=== PATIENT | male | born 1965 | race Two or more races ===

== ENCOUNTER 2024-07-20 11:52 | Observation (INO) | payer MEDICAID, SELFPAY ==
--- NOTE | 2024-07-17 12:26 | EKG_ITS ---
[facility] Test Date: 2024-07-17 Pat Name: ELISEO JACOBSON Department: Room: - Gender: Male Service Center Technician: LYLE : 1965 Requested By: Sal Palacio Order Number: [id number] Reading MD: Sal Palacio Measurements Intervals [place] Rate: 73 P: 34 OK: 157 QRS: 51 QRSD: 79 T: 19 QT: 339 QTc: 376 Interpretive Statements SINUS RHYTHM MINIMAL VOLTAGE CRITERIA FOR LVH, CONSIDER NORMAL VARIANT No previous ECG available for comparison /[id number]
[2024-07-17 12:36] VITALS: BMI 21.4
--- NOTE | 2024-07-17 12:57 | ESHP_ITS ---
RE: ELISEO JACOBSON : 1965 DATE OF ADMISSION: 07/18/2024 HISTORY OF PRESENT ILLNESS: The patient came to my office on 07/17/2024 for detailed preop history and physical examination. The patient presented to me earlier with history of pain in the right shoulder. The patient stated that he had a fall on 03/09/[address] gas station. The patient was walking out of the store and he tripped. The patient apparently landed on the right shoulder region. Since then, the patient has got pain. Range of motion is severely restricted. The patient graded intensity of pain to be 8/10. Activities of daily living and quality of life is affected. The patient also has polio in the left arm and is unable to raise the arm. Right arm is okay. The patient has polio in both lower limbs and takes some support to walk with. PAST MEDICAL HISTORY: No history of diabetes mellitus, high blood pressure, asthma, seizure, chest pain, or myocardial infarction. 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 DRUG HISTORY: 1. Pain medication on and off. 2. The patient takes pantoprazole and iron tablet. ALLERGIES: NIL KNOWN. FAMILY HISTORY AND SOCIAL HISTORY: Noncontributory. PHYSICAL EXAMINATION: GENERAL: Normal built person. VITAL SIGNS: Pulse 88 per minute, blood pressure 120/76. NECK: Soft, supple. No masses felt. Trachea is centrally placed. CARDIOVASCULAR SYSTEM: First and second heart sounds are normal. No murmur heard. ABDOMEN: Soft, scaphoid. No mass felt. Bowel sounds present. LUNGS: Bilateral vascular breath sounds. CHEST: Clear. EXTREMITIES: Right shoulder examination revealed no deformity. There is 2+ tenderness at AC joint. Active range of motion is 0 to 70 degrees of abduction and 0 to 70 degrees of forward flexion. Drop arm test is positive. Impingement test is positive. Michael test is positive. DIAGNOSTIC DATA: MRI scan was obtained earlier, which revealed massive rotator cuff tear involving supraspinatus and infraspinatus. Beside that, the patient has moderate AC joint arthritis and glenohumeral joint effusion. ASSESSMENT AND PLAN: Diagnosis and prognosis were explained to him in detail. The patient's family member was present as well. Surgical option was discussed. I explained that I do open surgery and in case the patient wants arthroscopic surgery, I can refer him out. However, the patient wanted to proceed with open surgery. With the help of shoulder model and strapper operator, it was explained to him in detail. Risks with anesthesia was explained and that includes, but not limited to reaction to anesthetic agents, cardiac arrest and rarely it might be fatal. Risks with operation includes infection and if that happens, the patient may need further surgical procedure. Other risks include delayed healing, wound dehiscence, etc. No guarantee is given regarding outcome of the procedure and/or relief of symptoms. Detailed discussion took place. Accordingly, surgery is booked for 07/18/2024. All questions were answered. DT: 11:57:02 TT: 12:55:00 Ref: [id number] - TID: [id number]
[2024-07-17 13:37] LABS: Basophils % (Auto) 0 % (0-2.5); Eosinophils # (Auto) 0.1 Thou/mm3 (0.0-0.5); Eosinophils % (Auto) 1 % (0-10); Hematocrit 47.8 % (41.0-53.0); Hemoglobin 16.4 g/dL (13.5-16.0); Immature Granulocytes % (Auto) 0 % (0-0); Immature Granulocytes Auto 0.01 Thou/mm3 (0.00-0.00); Lymphocytes # (Auto) 1.4 Thou/mm3 (1.0-4.8); Lymphocytes % (Auto) 27 % (10-50); Mean Corpuscular HGB Conc 34.3 g/dl (31.0-37.0); Mean Corpuscular Hemoglobin 30.7 pg (25.0-35.0); Mean Corpuscular Volume 89 fL (80-100); Monocytes # (Auto) 0.4 Thou/mm3 (0.0-0.8); Monocytes % (Auto) 8 % (0-12); Neutrophils # (Auto) 3.4 Thou/mm3 (1.8-7.7); Neutrophils % (Auto) 64 % (37-80); Nucleated Red Blood Cell % 0 /100 WBC (0); Platelet Count 295 Thou/mm3 (140-440); RDW Standard Deviation 41.7 fL (35.1-43.9); Red Blood Count 5.35 Miln/mm3 (4.50-5.90); White Blood Count 5.4 Thou/mm3 (3.8-10.6)
[2024-07-17 13:42] LABS: Partial Thromboplastin Time 28.2 Seconds (22.0-36.0); Prothrombin Time 11.3 Seconds (9.0-12.2)
[2024-07-17 13:50] LABS: Alanine Aminotransferase 44 U/L (10-49); Albumin/Globulin Ratio 1.7 (1.2-2.2); Alkaline Phosphatase 115 U/L (46-116); Anion Gap 9 (7-16); Aspartate Amino Transferase 32 U/L (0-34); BUN/Creatinine Ratio 22 Ratio (12-20); Bilirubin,Total 1.6 mg/dL (0.3-1.2); Blood Urea Nitrogen 22 mg/dL (9-23); Calcium 10.4 mg/dL (8.3-10.6); Calcium (Corrected) 10.4 mg/dL (8.5-10.1); Carbon Dioxide 26.2 mMol/L (20.0-31.0); Chloride 105 mMol/L (98-107); Estimated Creatinine Clearance 61.6 mL/min (>60); Glucose 94 mg/dL (74-106); Osmolality,Calculated 282 (275-295); Potassium 4.1 mMol/L (3.4-5.1); Sodium 140 mMol/L (136-145); eGFR > 60 See Note
[2024-07-18] VITALS (16 sets, daily range): BP systolic 121–145; BP diastolic 78–92; PULSE 84–106; RESP 12–99; TEMP 36.3–36.9; O2SAT 94–96; BMI 21.4
--- NOTE | 2024-07-18 16:16 | SUR.PHASEI ---
pt received from OR in recovery bay 1. pt asleep but responds to voice, breathing unlabored on room air. v/s stable. pt dressing to right shoulder cdi. report received from Andreea FONTAINE and Dr. Julio.
--- NOTE | 2024-07-18 16:16 | ESOP_ITS ---
Date of Procedure 07/18/24 Pre Op Diagnosis 1. Right rotator cuff tear 2 right shoulder impingement syndrome Post Op Diagnosis Same Procedure 1. Excision lateral end of the clavicle 2 excision coracoacromial ligament 3 acromioplasty 4 repair of rotator cuff 5. Manipulation under anesthesia Findings Patient has significant DJD of the AC joint. Osteophytes were present and were protruding inferiorly impinging on the rotator cuff. The rotator cuff was also torn. It was a minor tear but most of the fibers were attached to the greater tuberosity. Patient also has adhesive capsulitis. The rest of the findings are dictated in operating report Procedure Description The patient was given general endotracheal anesthesia. Right shoulder block was also given. Once satisfactory anesthesia was achieved patient was put in about 45?? sitting position with sandbag underneath the right shoulder blade. The part was thoroughly prepped and draped. A skin incision was made at the AC joint extending proximally towards the neck for a half inches and distally towards the arm for about couple of inches. Deeper dissection was carried out. Bleeding vessels were electrocoagulated as and when encountered. The soft tissue was reflected. Following that AC joint was exposed and AC joint was exposed. The AC joint showed significant osteoarthritic changes with osteophyte formation. The deltoid muscle was reflected from the anterior and lateral aspect of the acromial process. The acromial process showed rather big osteophytes from the anterior aspect. There was small osteophyte on the lateral aspect as well. Following that a periosteal elevator was placed underneath the lateral end of the clavicle and lateral 3-4 mm was excised. The coracoacromial ligament was removed. The anterior 2 mm and lateral 2 mm of acromion process along with osteophytes were removed with the help of saw. With the help of curved osteotome the undersurface of the Acromial processes was chiseled out. That made more room between the superior surface of the head of the humerus and undersurface of the acromial process. Following that the rotator cuff was inspected. It revealed an oval tear, however most of the fibers were attached to the greater tuberosity. Wound was irrigated with antibiotic solution every 4-5 minutes. The right s houlder was manipulated at this time. Full range of abduction and forward flexion was achieved. The rotator cuff tear was repaired with 2-0 Vicryl. 2 drill holes were made on the acromial process and deltoid muscle was stitched back to it. Some reinforcement sutures were placed. The subcutaneous tissue was then closed with the help of 2-0 Vicryl and 3-0 Vicryl in layers. The skin was closed with lowell. After cleaning the wound with hydrogel proximal solution and sterile dressing was applied. Patient was taken to the recovery room in good condition. Estimated blood loss 20 mL. Prognosis in this case is good. Anesthesia GETA and other Pathology / specimen None Estimated Blood Loss 20 Surgeon Sal Zapata MD Surgical Staff Operation Date: 07/18/24 15:45 Case Staff Anesthesiologist: Anthony Julio RNhealth care / medical job titles: Katie Tanner
--- NOTE | 2024-07-18 16:40 | SUR.PHASEI ---
pt able to tolerate oral fluids without difficulty swallowing or nausea/vomiting.
[2024-07-18] MEDS: METOPROLOL TARTRATE INJ 1 MG/ML AMP 5 ML IVP (17:24)
--- NOTE | 2024-07-18 18:26 | ESPR_ITS ---
Documentation for date of: 07/18/24 ANESTHESIA NOTE: Patient had general LMA anesthesia with R interscalene nerve block for R rotator surgery earlier today. 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 He did well intra-op and has been in PACU post op doing well, alert, no post op pain, VSS, visited by family. His HR and BP was slightly elevated so he was given IV Metoprolol. Anticipate R UE nerve block to last up to 24 hrs, currently in protective sling. Anthony Julio MD Anesthesia Progress Note Progress Note Most recent Vital Signs: Last Vital Signs Temp 97.7 F 07/18/24 18:15 Pulse 98 07/18/24 18:15 Resp 19 07/18/24 18:15 BP 136/80 H 07/18/24 18:15 Pulse Ox 95 07/18/24 18:15
--- NOTE | 2024-07-18 19:25 | SUR.PHASEII ---
pt awake and alert, breathing unlabored on room air. v/s stable. pt dressing to right shoulder cdi. report called to Vani FONTAINE. pt will be transferred to room at this time.
[2024-07-19 04:00] VITALS: BP 113/74; PULSE 90; RESP 17; TEMP 36.2; O2SAT 95
[2024-07-19] MEDS: HYDROcodone/APAP 5/325 TABLET 1 TAB PO ×3 (06:41→19:32)
[2024-07-19 08:00] VITALS: BP 139/73; PULSE 58; RESP 17; TEMP 36.1; O2SAT 99
--- NOTE | 2024-07-19 10:00 | PC.SS ---
SNUFF GRINDER spoke to dr and nurse regarding pt not wanting to go home due to wanting to go to a SNF, SNUFF GRINDER, and Nurse discussed possible d.c plans for pt, SNUFF GRINDER to follow up with Pt.
--- NOTE | 2024-07-19 11:14 | PC.SS ---
BLENDING TANK HELPER spoke to Nurse Cardenas and Dr. Zapata about pt's and daughter Britni's concern about pt going back home and them not being ok with the d/c plan of pt going home without assistance due to client feeling like he won't be able to complete his own ADL's because he has polio on left arm, and he lives with 83 year old grandma who is limited on what she can assist him with, Dr. Rojas stated that he had a conversation with pt and family before pt had surgery and they stated that they would be able to assist pt with post op. Dr. James stated that he is okay with pt getting a pt eval and Nurse davi will put a PT eval for pt to eval pt, but pt will be staying over the weekend due to pt having managed medical. BLENDING TANK HELPER explained to pt the options of pt staying at the hospital and waiting for pt to eval, or for pt to go home and get assistance from family, pt stated that he wanted to wait and see PT for eval. BLENDING TANK HELPER to follow up through out the weekend and see what PT recommends for pt to discuss d/c plan.
[2024-07-19 11:40] VITALS: PULSE 61; RESP 18; RESP 99
[2024-07-19 12:00] VITALS: BP 129/78; PULSE 68; RESP 17; TEMP 36.2; O2SAT 93
--- NOTE | 2024-07-19 13:45 | PC.SS ---
PT followed up with LEAD SHIPPER and stated that she will be recommending SNF placement, LEAD SHIPPER to start referral process.
--- NOTE | 2024-07-19 14:32 | PC.PT ---
Patient has regular sling. Pls put folded towel in between patient's forearm and body especially when patient is in supine, to position patient's shoulder in abduction.
[2024-07-19 16:00] VITALS: BP 133/89; PULSE 82; RESP 16; TEMP 36.2; O2SAT 95
[2024-07-19 20:00] VITALS: BP 133/79; PULSE 70; RESP 18; TEMP 36.4; O2SAT 94
[2024-07-20] VITALS (8 sets, daily range): BP systolic 112–139; BP diastolic 77–94; PULSE 66–81; RESP 17–96; TEMP 36.2–36.6; O2SAT 92–97
[2024-07-20] MEDS: HYDROcodone/APAP 5/325 TABLET 1 TAB PO ×4 (02:00→23:35)
--- NOTE | 2024-07-20 09:11 | PC.SS ---
REIMBURSEMENT SPEC met with pt and asked pt if he has a SNF preference and pt stated that he prefers a SNF in [place],REIMBURSEMENT SPEC completed PASSAR.
--- NOTE | 2024-07-20 09:43 | PC.SS ---
BUSINESS RESILIENCY MANAGER submitted SNF referrals via [employer]
--- NOTE | 2024-07-20 10:40 | PC.SS ---
Pt stated that his preference of SNF placement is somewhere in [place], PANEL FITTER submitted referrals.
--- NOTE | 2024-07-20 15:18 | PC.NURSE ---
well services operator met with patient at bedside about discharge plan. Dr. Zapata met with patient at bedside earlier in the day, patient was informed that additional stay in the hospital may result in charges not covered by patient's insurance. Patient decided to stay additional night and still requested placement in SNF. Patient was seen by physical therapy. Patient changed mind at 1430, attempts made at 1430, 1500, and [address] Zapata to inform of patient's change of mind. patient is becoming agitated and wants to leave.
--- NOTE | 2024-07-20 15:29 | PC.SS ---
CLOTH FEEDER met with pt to follow up on acceptance of SNF's facilities in [place], CLOTH FEEDER followed up with pt and informed pt that [facility] in [place] was the only facility that accepted pt, and pt stated that he wanted to go home and did not want to go to a SNF. CLOTH FEEDER had a conversation with pt regarding him explaining to CLOTH FEEDER the day before that he wanted to go to a snf and agreed to stay until snf referrals were made. CLOTH FEEDER explained to pt on what physical therapist recommended for pt upon discharge. CLOTH FEEDER talked to daughter Nayana and explained to her what pt wanted to do, CLOTH FEEDER explained to daughter why pt is being referred to SNF, and daughter stated that she also wants pt to go to a snf, pt decided to stay and wait for insurance auth for pt to d/c to snf. CLOTH FEEDER followed up with nurse.
--- NOTE | 2024-07-20 19:28 | ESPR_ITS ---
RE: ELISEO JACOBSON : 1965 DATE OF SERVICE: 07/20/2024 The patient was seen by me again on 07/18/2024. The patient is status post right rotator cuff repair with Debbie procedure. The patient could not be sent home on 07/18/2024 because the patient has had a right shoulder block or a scalene block. The patient felt weakness in the right arm and has difficulty in holding the walker. The patient has polio on the left arm and the range of motion is almost absent. The patient's left arm is extremely weak. Besides that, the patient has polio in both lower limbs and uses walker to walk with. Under the circumstance, the patient was admitted for overnight on 07/18/2024 until the effect of the block is gone. However, on 07/19/2024, the patient still had some weakness. The patient stated that he does not have family support. The patient did not bring these issues before the operative procedure and stated that he has a family who can take care of him. However, under the circumstance, we decided to keep the patient for one more night. The physical therapy will come and mobilize him either on 07/19/2024 or 07/20/2024. Basically, it is a social admission. DT: 10:55:35 TT: 19:26:00 Ref: [id number] - TID: [id number]
[2024-07-21] VITALS: BP 129/80; PULSE 75; RESP 18; TEMP 36.2; O2SAT 93
[2024-07-21 04:00] VITALS: BP 135/86; PULSE 78; RESP 18; TEMP 36.2; O2SAT 94
[2024-07-21 07:29] VITALS: PULSE 77; RESP 21; RESP 95
[2024-07-21 08:00] VITALS: BP 127/97; PULSE 89; RESP 18; TEMP 36.6; O2SAT 94
--- NOTE | 2024-07-21 08:41 | PC.SS ---
Seeking Placement: [facility] [address] [place] [address] Longterm Facility 07/20/2024 09:41 (1) [facility] [address] [place], [place] [phone] Longterm Facility Yes 07/20/2024 09:59 07/20/2024 09:41 We can accept this patient. Thank you for your referral (2) [facility] [address], [place] [phone] Longterm Facility Yes 07/20/2024 12:09 07/20/2024 09:41 We can accept this patient. Thank you for your referral (2) [facility] [address], [place] [phone] Longterm Facility Considering 07/20/2024 09:49 07/20/2024 09:41 Pending Nurse Evaluation (1) [facility] [address], [place] [phone] Longterm Facility Yes 07/20/2024 13:34 07/20/2024 09:41 We can accept this patient. Thank you for your referral (2) [facility] [address] [place], [place] [phone] Longterm Facility Yes 07/20/2024 12:38 07/20/2024 09:41 We can accept this patient. Thank you for your referral (1) [facility] [address] [place] [address] Longterm Facility Yes 07/20/2024 12:16 07/20/2024 09:41 We can accept this patient. Thank you for your referral (1) [facility] [address], [place] [phone] Longterm Facility 07/20/2024 09:41 (1) [facility] [address] [place] [address] Longterm Facility Yes 07/20/2024 09:43 07/20/2024 09:41 We can accept this patient. Thank you for your referral (1) [facility] [address] [phone] Longterm Facility [facility] [address] [facility], [place] [phone] Longterm Facility No 07/20/2024 09:42 07/20/2024 09:41 Not Contracted With Insurance Carrier (1) [facility] [address] [place] [phone] Longterm Facility Yes
--- NOTE | 2024-07-21 09:32 | PC.SS ---
SS followed up with pt regarding his d/c plan to SNF. Pt refused to go to SNF and his request is return home upon dc. Bedside nurse, Theresa is aware and will notify Dr. Rojas. SS has called patient's dtr, Alina who is aware pt is refusing SNF and will return home. SS attempted to call Dr. Kraus but was unsuccessful. SS left voicemail with contact information. Pt states his dtrNayana is aware he has changed his mind and is now returning home. has also notified transfer nurse, Marino pt will return home with and he does not have preference. Pt states he followed up with PCP, Rhea Soliz in June.
--- NOTE | 2024-07-21 09:35 | PC.CM ---
1813 Pt is discharged. I informed Dr. Rojas that informed me that pt needs HH services and if he can place HH orders in. He stated it will be done tomorrow. 931 SS informed me that pt needs HH services, entered the pt on e.
[2024-07-21] MEDS: HYDROcodone/APAP 5/325 TABLET 1 TAB PO (09:52)
--- NOTE | 2024-07-22 18:55 | PC.CM ---
I checked for home health orders from Dr. Rojas. Orders have not been placed. Marino spoke to Dr. Rojas yesterday and he told her he would put in home health orders.
--- NOTE | 2024-07-23 11:46 | PC.CM ---
called and reminded Dr. Rojas to place HH orders. He stated he will put the orders after 1pm.
--- NOTE | 2024-07-28 14:59 | PC.CM ---
I called Dr. Rojas office and I spoke to Maddie. I let her know that it has been so long since patient was discharge, that they would need to order home health if still needed. Maddie stated patient was in on the and they changed the dressing. She was trying to get a hold of Dr. Rojas to ask him about it, but he was busy. I let her know to call us if they need anything from us and I provided her with our number.
--- NOTE | 2024-07-31 10:26 | ESPR_ITS ---
RE: ELISEO JACOBSON : 1965 DATE OF SERVICE: 07/20/2024 HISTORY OF PRESENT ILLNESS: The patient is status post right rotator cuff repair with Debbie procedure. I saw him today. The patient does not have any weakness in the fist and urban sociologist on the right side. I explained to the patient that he can certainly use walker and can have a good urban sociologist on the walker. There is no restriction in moving the right arm at all. I am awaiting for the physical therapy to mobilize the patient and once the patient is mobilized, the patient could be discharged home. The patient is not in too much pain. It is to be noted that the patient has a casandra on the left upper arm as well as in both lower limbs and has to use walker to walk with. DT: 10:56:48 TT: 21:57:00 Ref: [id number] - TID: [id number]
== END 2024-07-21 11:59 | disposition home health service (06) ==
LOC: S3NX 07-21 05:17 → S2EX 07-21 05:17 → S3NX 07-21 05:18
PROVIDERS: Anesthesiology; Admitting Provider Orthopaedic Surgery; PCP Physician Assistant Medical; Referring Provider Orthopaedic Surgery; Visit Provider Orthopaedic Surgery
PROC: (CPT 23412; principal; 2024-07-18 15:30)
DX: M75.101 Unspecified rotator cuff tear or rupture of right shoulder, not specified as traumatic (principal); M75.41 Impingement syndrome of right shoulder; W01.0XXA Fall on same level from slipping, tripping and stumbling without subsequent striking against object, initial encounter; Y93.01 Activity, walking, marching and hiking
CPT/HCPCS: 23412; 23120; 36415; 80053; 85025; 85610; 85730; 93005; 97162; A4649; G0378; J0690; J1100; J1580; J2250; J2704; J2765; J2795; J3010; J3490; A9270